=== PATIENT | female | born 1990 | race Caucasian/White ===

== ENCOUNTER 2021-04-23 04:10 | Emergency (ER) | payer SELFPAY ==
[~2021-04-23] VITALS: Ht 162.6 cm; Wt 63.6 kg
[2021-04-23 04:30] VITALS: BP 103/54; PULSE 63; TEMP 97.6
[2021-04-23] MEDS ORDERED: PERCOCET 325 MG1 TA2 PO (04:47)
[2021-04-23] MEDS ORDERED: CLEOCIN HCL300 MG PO (04:47)
== END 2021-04-23 05:12 | disposition home or self-care (01) ==
LOC: COL.ER 04:10
DX: K04.7 Periapical abscess without sinus (principal)

== ENCOUNTER 2022-12-16 09:25 | Emergency (ER) | payer MEDICAID ==
[~2022-12-16] VITALS: Ht 160 cm; Wt 77.3 kg
[~2022-12-16 09:25] MED LIST: CEPHALEXIN500 M1 PO; CLEOCIN HCL300 MG PO; NORCO 325 MG-51 TAB PO; PERCOCET 325 MG1 TA2 PO; PRENATAL TABLET PO
[2022-12-16 10:08] LABS: BASO # 0.1 K/mm3 (0.0-0.2); BASO % 0.7 % (0.0-2.0); EOS # 0.2 K/mm3 (0.0-0.7); EOS % 1.8 % (0.0-4.0); GRAN # 6.7 K/mm3 (1.4-6.5); GRAN % 70.3 % (42.2-75.2); HEMOGLOBIN 11.2 g/dl (12.5-16.0); LYMPH # 1.6 K/mm3 (1.2-3.4); LYMPH % 16.6 % (20.0-51.0); MEAN CELL VOLUME 93 fl (80.0-100.0); MEAN CORPUSCULAR HEMOGLOBIN 31 pg (27-31); MEAN CORPUSCULAR HGB CONC 33 g/dl (33.0-37.0); MEAN PLATELET VOLUME 9.8 fl (7.4-10.4); MONO # 0.9 K/mm3 (0.1-0.6); MONO % 9.9 % (1.7-9.3); PLATELET COUNT 264 K/mm3 (130-400); RED BLOOD COUNT 3.66 M/mm3 (4.10-5.30); REDCELL DISTRIBUTION WIDTH-CV 12.2 % (11.5-14.5)
[2022-12-16 10:23] LABS: ALBUMIN 3.1 gm/dL (3.5-5.0); BILIRUBIN,TOTAL 0.3 mg/dL (0.2-1.2); CALCIUM 8.6 mg/dL (8.4-10.2); CREATININE, serum 0.61 mg/dL (0.57-1.11); POTASSIUM 3.7 mmol/L (3.5-4.5); TOTAL PROTEIN 6.5 gm/dL (6.2-8.1)
[2022-12-16 10:57] LABS: COLLECTION METHOD CLEAN CATCH
[2022-12-16 11:08] LABS: URINE BACTERIA Rare /hpf (NONE SEEN); URINE RBC 0-2 /hpf (0-2)
[2022-12-16 11:10] LABS: URINE APPEARANCE Hazy (CLEAR/HAZY); URINE BLOOD Negative (NEGATIVE); URINE COLOR Straw (YELLOW); URINE GLUCOSE Negative (NEGATIVE); URINE KETONE Negative (NEGATIVE); URINE NITRATE Negative (NEGATIVE); URINE PROTEIN(semi-quant) Negative (NEGATIVE); URINE UROBILINOGEN 0.2 E.U/dL (0.2-1.0)
[2022-12-16] MEDS ORDERED: CEFTIN500 MG PO ×3 (11:42→12:33)
[2022-12-16 12:00] VITALS: BP 105/88; PULSE 87; TEMP 98.6
== END 2022-12-16 12:00 | disposition home or self-care (01) ==
LOC: COL.ER 09:25
PROVIDERS: Physician Assistant
DX: O99.512 Diseases of the respiratory system complicating pregnancy, second trimester (principal); J01.90 Acute sinusitis, unspecified; Z3A.25 25 weeks gestation of pregnancy; Z20.822 Contact with and (suspected) exposure to COVID-19; Z28.310 Unvaccinated for COVID-19
CPT/HCPCS: J2550; J7030